=== PATIENT | male | born 1995 | race Caucasian/White ===

== ENCOUNTER 2023-01-08 13:22 | Emergency (ER) | payer OTHER ==
[~2023-01-08] VITALS: Ht 180.3 cm; Wt 69.4 kg
[2023-01-08 13:28] VITALS: BP 140/97
[2023-01-08] MEDS ORDERED: methocarbamoL 500 MG TAB PO STA (14:30)
[2023-01-08] MEDS ORDERED: LIDOCAINE 5% 1 EA PATCH TP ONE (14:30)
[2023-01-08] MEDS ORDERED: DEXAMETHASONE 4 MG/ML VIAL PO ONE (14:30)
[2023-01-08] MEDS ORDERED: BENZ200C4 PO (14:33)
[2023-01-08] MEDS ORDERED: IBUP-2213 PO (14:33)
[2023-01-08] MEDS ORDERED: ALBU0.0912 IH (14:33)
[2023-01-08] MEDS ORDERED: LID5T TP (14:33)
--- NOTE | 2023-01-08 14:35 | NUR ---
27 yo/m presents to ed w c/o cough x4 weeks with phlegm, + R sided chest pain pt relates to hx of intramuscular spasms. pt denies sob, fevers, chills, n/v/d or other symptoms at this time. pmh: intramuscular spasms, anxiety, panic attacks allergies: denies
[2023-01-08 15:25] VITALS: BP 135/96
--- NOTE | 2023-01-08 15:25 | NUR ---
Patient discharged with v/s stable. Written and verbal after care instructions given and explained. Patient alert, oriented and verbalized understanding of instructions. Ambulatory with steady gait. All questions addressed prior to discharge. ID band removed. Patient advised to follow up with PMD. Rx of ALBUTEROL, BENZONATATE, LIDODERM PATCH given. Patient educated on indication of medication including possible reaction and side effects. Opportunity to ask questions provided and answered.
--- NOTE | 2023-01-08 15:25 | NUR ---
PT REPORTS FEELING CHEST PAIN AND COUGH IMPROVEMENT AT THIS TIME.
== END 2023-01-08 15:25 | disposition home or self-care (01) ==
LOC: MED 13:22
DX: J20.9 Acute bronchitis, unspecified (principal); R07.89 Other chest pain; F17.210 Nicotine dependence, cigarettes, uncomplicated; Z79.899 Other long term (current) drug therapy
CPT/HCPCS: 71045; 99284; J1100

== ENCOUNTER 2023-06-08 22:23 | Emergency (ER) | payer OTHER ==
[~2023-06-08] VITALS: Ht 180.3 cm; Wt 74.8 kg
[~2023-06-08 22:23] MED LIST: ALBU0.0912 IH; BENZ200C4 PO; IBUP-2213 PO; LID5T TP
[2023-06-08 22:29] VITALS: BP 150/90; PULSE 124; RESP 18; TEMP 98.3; O2SAT 97
[2023-06-08] MEDS ORDERED: KETOROLAC 30 MG/ML VIAL IVP ONE (23:55)
[2023-06-08] MEDS ORDERED: NACL 0.9% 1,000 ML IV ONE (23:55)
[2023-06-09] MEDS ORDERED: LORazepam 2 MG/ML VIAL IVP ONE (00:05)
[2023-06-09 00:39] LABS: BASOPHILS # (AUTO) 0.1 K/uL (0.00-0.22); BASOPHILS % (AUTO) 1.3 % (0.0-2.0); LYMPHOCYTES # (AUTO) 0.3 K/uL (2.0-11.5); LYMPHOCYTES % (AUTO) 7.5 % (20.5-51.1); MEAN CORPUSCULAR HEMOGLOBIN 31 pg (27-31); MEAN CORPUSCULAR HGB CONC 33 g/dL (33-37); MEAN CORPUSCULAR VOLUME 91.8 fL (80-94); MONOCYTES # (AUTO) 0.7 K/uL (0.8-1.0); MONOCYTES % (AUTO) 15.6 % (1.7-9.3); NEUTROPHILS # (AUTO) 3.4 K/uL (1.8-7.7); NEUTROPHILS % (AUTO) 75.6 % (42.2-75.2); PLATELET COUNT (AUTO) 139 K/uL (140-450); RED BLOOD CELL COUNT(AUTO) 3.92 MIL/uL (4.20-6.10); RED CELL DISTRIBUTION WIDTH 13.6 % (11.6-13.7); WHITE BLOOD COUNT (AUTO) 4.5 K/uL (4.8-10.8)
[2023-06-09 01:09] LABS: ALBUMIN 3.6 g/dL (3.4-5.0); ANION GAP 16.6 (8-16); CALCIUM 8.7 mg/dL (8.5-10.1); CARBON DIOXIDE 25.5 mmol/L (21-32); CREATININE 0.7 mg/dL (0.6-1.3); POTASSIUM 4.1 mmol/L (3.5-5.1); TOTAL BILIRUBIN 0.9 mg/dL (0.0-1.0); TOTAL PROTEIN, SERUM 7.3 g/dL (6.4-8.2)
[2023-06-09 01:55] VITALS: BP 138/92; PULSE 95; RESP 18; TEMP 97.4; O2SAT 97
== END 2023-06-09 02:00 | disposition home or self-care (01) ==
LOC: MED 22:23
DX: F10.239 Alcohol dependence with withdrawal, unspecified (principal); E86.0 Dehydration; R03.0 Elevated blood-pressure reading, without diagnosis of hypertension; Y90.9 Presence of alcohol in blood, level not specified
CPT/HCPCS: 36415; 80053; 85025; 96361; 96374; 96375; 99284; G0482; J1885; J2060; J7030

== ENCOUNTER 2023-09-03 17:55 | Emergency (ER) | payer OTHER ==
[~2023-09-03] VITALS: Ht 180.3 cm; Wt 76.0 kg
[2023-09-03 18:10] VITALS: BP 147/91; PULSE 87; RESP 20; TEMP 98; O2SAT 95
[2023-09-03] MEDS ORDERED: KETOROLAC 30 MG/ML VIAL IM ONE (19:55)
[2023-09-03 20:26] LABS: BASOPHILS # (AUTO) 0.1 K/uL (0.00-0.22); BASOPHILS % (AUTO) 1.2 % (0.0-2.0); EOSINOPHILS % (AUTO) 0.2 % (0.0-4.0); HEMATOCRIT 38.1 % (36-52); HEMOGLOBIN 12.7 g/dL (12.0-18.0); LYMPHOCYTES # (AUTO) 1.1 K/uL (2.0-11.5); LYMPHOCYTES % (AUTO) 19.5 % (20.5-51.1); MEAN CORPUSCULAR HEMOGLOBIN 30 pg (27-31); MEAN CORPUSCULAR HGB CONC 33 g/dL (33-37); MEAN CORPUSCULAR VOLUME 89.5 fL (80-94); MONOCYTES # (AUTO) 0.6 K/uL (0.8-1.0); NEUTROPHILS % (AUTO) 69.1 % (42.2-75.2); PLATELET COUNT (AUTO) 163 K/uL (140-450); RED BLOOD CELL COUNT(AUTO) 4.26 MIL/uL (4.20-6.10); RED CELL DISTRIBUTION WIDTH 13.4 % (11.6-13.7); WHITE BLOOD COUNT (AUTO) 5.8 K/uL (4.8-10.8)
[2023-09-03 20:41] LABS: ALBUMIN 4.4 g/dL (3.4-5.0); ANION GAP 12.7 (8-16); CALCIUM 9.3 mg/dL (8.5-10.1); CARBON DIOXIDE 28.2 mmol/L (21-32); CREATININE 0.6 mg/dL (0.6-1.3); POTASSIUM 3.9 mmol/L (3.5-5.1); TOTAL PROTEIN, SERUM 8.2 g/dL (6.4-8.2)
[2023-09-03] MEDS ORDERED: IBUP-2213 PO (22:09)
[2023-09-03 22:33] VITALS: BP 147/91; PULSE 87; RESP 20; TEMP 98; O2SAT 95
== END 2023-09-03 22:33 | disposition home or self-care (01) ==
LOC: MED 17:55
DX: R07.89 Other chest pain (principal); R06.02 Shortness of breath; Z79.899 Other long term (current) drug therapy; Z79.1 Long term (current) use of non-steroidal anti-inflammatories (NSAID)
CPT/HCPCS: 36415; 71045; 80053; 83880; 84484; 85025; 93005; 96372; 99285; J1885

== ENCOUNTER 2024-03-22 02:39 | Emergency (ER) | payer OTHER ==
[~2024-03-22] VITALS: Ht 180.3 cm; Wt 77.1 kg
[2024-03-22 02:39] VITALS: BP 124/92; PULSE 92; RESP 16; TEMP 97.1; O2SAT 95
[2024-03-22] MEDS: KETOROLAC 30 MG/ML VIAL IM ONE (05:41)
[2024-03-22] MEDS: ACETAMINOPHEN EXTRA STRENGTH 500 MG TAB PO ONE (05:42)
[2024-03-22 06:23] LABS: BASOPHILS # (AUTO) 0.1 K/uL (0.00-0.22); BASOPHILS % (AUTO) 2.2 % (0.0-2.0); EOSINOPHILS % (AUTO) 0.1 % (0.0-4.0); HEMATOCRIT 41.1 % (36-52); LYMPHOCYTES # (AUTO) 2.3 K/uL (2.0-11.5); LYMPHOCYTES % (AUTO) 35.4 % (20.5-51.1); MEAN CORPUSCULAR HEMOGLOBIN 30 pg (27-31); MEAN CORPUSCULAR HGB CONC 34 g/dL (33-37); MEAN CORPUSCULAR VOLUME 87.4 fL (80-94); MONOCYTES # (AUTO) 0.5 K/uL (0.8-1.0); NEUTROPHILS # (AUTO) 3.6 K/uL (1.8-7.7); NEUTROPHILS % (AUTO) 55.3 % (42.2-75.2); PLATELET COUNT (AUTO) 264 K/uL (140-450); WHITE BLOOD COUNT (AUTO) 6.5 K/uL (4.8-10.8)
[2024-03-22 06:31] LABS: ANION GAP 18.6 (8-16); CALCIUM 8.7 mg/dL (8.5-10.1); CARBON DIOXIDE 26.4 mmol/L (21-32); CREATININE 0.6 mg/dL (0.6-1.3)
[2024-03-22] MEDS: MORPHINE SULFATE 4 MG/ML SYR IM ONE (10:13)
[2024-03-22] MEDS ORDERED: IBUP-2213 PO (10:18)
[2024-03-22] MEDS ORDERED: ACET-8905 PO (10:18)
[2024-03-22 10:20] VITALS: BP 122/86; PULSE 88; RESP 18; TEMP 98.1; O2SAT 95
== END 2024-03-22 10:23 | disposition home or self-care (01) ==
LOC: MED 02:39
DX: M54.2 Cervicalgia (principal); Z79.899 Other long term (current) drug therapy; Y04.0XXA Assault by unarmed brawl or fight, initial encounter; Y93.89 Activity, other specified; Y92.89 Other specified places as the place of occurrence of the external cause; Y99.8 Other external cause status
CPT/HCPCS: 36415; 70450; 70491; 80048; 85025; 96372; 99285; J1885; J2270; Q9967